=== PATIENT | female | born 1940 | race Caucasian/White ===

== ENCOUNTER 2022-08-05 21:49 | Emergency (ER) | payer MEDICARE ==
[2022-08-05 21:58] VITALS: BP 167/67
--- NOTE | 2022-08-05 22:38 | ED Physician Documentation ---
PD HPI UPPER EXT INJURY - Stated complaint Stated Complaint: FALL/L ARM PX - Chief complaint Chief Complaint: Ext Problem - History obtained from History obtained from: Patient - Additonal information Additional information: HPI from patient. Patient complains of sudden onset of left wrist pain at 8:30 PM tonight when she was ambulating around her house and tripped and fell onto outstretched left up per extremity. Patient is right-hand dominant. She denies any other injury. Denies head injury, does not take any blood thinners. The pain is exacerbated with movement, palpation. The pain is partially ameliorated with rest Review of Systems Musculoskeletal: reports: Joint pain (left wrist) PD PAST MEDICAL HISTORY - Past Medical History Past Medical History: No - Allergies Allergies/Adverse Reactions: Allergies Allergy/AdvReac Type Severity Reaction Status Date / Time No Known Drug Allergies Allergy Verified 08/05/22 21:57 PD ED PE NORMAL - Vitals Vital signs reviewed: Yes - General General: Alert and oriented X 3, No acute distress (NAD at rest, painful distress with palpation or movement involving left wrist), Well develop ed/nourished - HEENT HEENT: Atraumatic - Neck Neck: No bony TTP - Abdomen Abdomen: Soft, Non tender - Neuro Neuro: Alert and oriented X 3, 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, No motor deficit, No sensory deficit Eye Opening: Spontaneous Motor: Obeys Commands Verbal: Oriented GCS Score: 15 PD ED PE EXPANDED - Extremities Extremities: Tenderness, Limited ROM, Left wrist, Sensory intact (LTS intact left hand, fingertips), Vascular intact (brisk capillary refill in fingertips) Results - Vitals Vitals: Oxygen O2 Source Room air - Rads (name of study) left wrist xrays Relevant Findings:: Prelim report reviewed, EMP independent interpretation of test, See rad report Procedures - Splint (location) - Minor Upper extremity left Splint applied by: Tech Type of splint: Fiberglass, Short arm (volar) Other: Patient tolerated well, No complications, Neurovascular intact, Good alignment, Sling provided PD Medical Decision Making - ED course Complexity details: reviewed results, re-evaluated patient, considered differential, d/w patient ED course: Presents after trip and fall onto outstretched left upper extremity, x-rays reveal distal radial fracture and ulnar styloid fracture as noted above. A volar splint is placed and sling provided. The patient reported improvement regarding her pain with 5 mg of p.o. oxycodone, and is given a second dose of 5 mg oxycodone prior to discharge for residual pain. No rx provided, as patient indicates she has hydrocodone at home that she can use. The results of the x-ray, diagnosis, and return precautions are discussed with patient. I advised her of the need to follow up with orthopedic surgeon within a week for reevaluation. Family is at bedside and present for these discussions including follow up recommendations,. Departure - Departure Disposition: 01 Home, Self Care Clinical Impression: Fracture of left radius and ulna Qualifiers: Encounter type: initial encounter Fracture type: closed Qualified Code(s): S52.92XA - Unspecified fracture of left forearm, initial encounter for closed fracture Condition: Good Instructions: ED Fx Wrist General Comments: The x-rays performed tonight show that you have fractures ("breaks") of 2 bones at the end of your forearm adjacent to the wrist joint. The bones that are broken are the radius and the ulna. Fortunately, the fractures are lined up well (do not need to be "put back in place"). The area needs to be immobilized during the healing process, and thus a splint has been placed in the emergency department. You need to follow-up with an orthopedic surgeon, ideally within the next week, for reevaluation of the injury. If you do not have an orthopedic surgeon, contact your insurance provider to inquire about the referral process. Discharge Date/Time: 08/06/22 00:14
[2022-08-05] MEDS ORDERED: oxyCODONE 5 MG TABLET PO STA ×2 (23:00→23:40)
--- NOTE | 2022-08-05 23:23 | XRAY Report ---
PROCEDURE: Wrist 3 View LT INDICATIONS: fall, injury with tenderness and pain TECHNIQUE: 3 views of the wrist were acquired. COMPARISON: None. FINDINGS: Bones: Distal radius fracture. A minimal dorsal angulation. Ulnar styloid fracture. Mild displacemen t. No dislocations. No suspicious bony lesions. Soft tissues: No suspicious soft tissue calcifications or masses. IMPRESSION: Distal radius fracture. Ulnar styloid fracture. Reviewed by: Troy Hutchins MD on 08/05/2022 11:36 PM PDT Approved by: Troy Hutchins MD on 08/05/2022 11:36 PM PDT Station ID: [id number]
== END 2022-08-06 00:14 | disposition home or self-care (01) ==
LOC: ED 21:49
DX: S52.502A Unspecified fracture of the lower end of left radius, initial encounter for closed fracture (principal); S52.612A Displaced fracture of left ulna styloid process, initial encounter for closed fracture; W01.0XXA Fall on same level from slipping, tripping and stumbling without subsequent striking against object, initial encounter; Y93.01 Activity, walking, marching and hiking; Y92.009 Unspecified place in unspecified non-institutional (private) residence as the place of occurrence of the external cause
CPT/HCPCS: 29125; 73110; 99282; 99283; A9270

== ENCOUNTER 2022-11-18 18:17 | Outpatient (CLI) | payer MEDICARE | END 2022-11-18 18:18 | disposition short-term general hospital (02) | LOC: EMS 18:17 | DX: M25.552 Pain in left hip (principal); W01.0XXA Fall on same level from slipping, tripping and stumbling without subsequent striking against object, initial encounter; Y92.512 Supermarket, store or market as the place of occurrence of the external cause | CPT/HCPCS: A0425; A0427 ==